=== PATIENT | male | born 1985 | race Two or more races ===

== ENCOUNTER 2017-07-10 11:53 | Emergency (ER) | payer SELFPAY ==
[~2017-07-10] VITALS: Ht 160 cm; Wt 70.3 kg
--- NOTE | 2017-07-10 11:56 | NUR ---
BIBRA FROM WORK PLACE DUE TO EPIGASTRIC PAIN, 04/28, SHARP/ PRESSURE LIKE, NON RADIATING. PATIENT IS [id number]. APPEARS IN NO APPARENT DISTRESS. RESPIRATION EVEN AND UNALBORED. SKIN IS WARM TO TOUCH AND NON DIAPHORETIC. AFEBRILE. VSS
[2017-07-10] MEDS ORDERED: ONDANSETRON HCL 4 MG/5 ML SOLUTION ONE (12:24)
[2017-07-10] MEDS ORDERED: MAG HYDROX/AL HYDROX/SIMETH 30 ML UDC ONE (12:24)
[2017-07-10] MEDS ORDERED: LIDOCAINE VISCOUS 2% UD 15 ML UDC ONE (12:24)
--- NOTE | 2017-07-10 12:27 | NUR ---
MEDICATED PT ORDERED
[2017-07-10] MEDS ORDERED: LIDOCAINE VISCOUS 2% UD 15 ML UDC MM ONE (12:30)
[2017-07-10] MEDS ORDERED: ONDANSETRON HCL/PF 4 MG/2 ML VIAL IV ONE (12:30)
[2017-07-10] MEDS ORDERED: MAG HYDROX/AL HYDROX/SIMETH 30 ML UDC PO ONE (12:30)
--- NOTE | 2017-07-10 13:57 | NUR ---
Patient discharged to home in stable condition. Written and verbal after care instructions given. Patient verbalizes understanding of instruction.IV removed. Catheter intact and site benign. Pressure and 4x4 applied to site. No bleeding noted.
[2017-07-10 13:58] VITALS: BP 121/66
== END 2017-07-10 13:59 | disposition home or self-care (01) ==
LOC: ER 11:55
DX: R10.13 Epigastric pain (principal); F17.200 Nicotine dependence, unspecified, uncomplicated
CPT/HCPCS: A4606; Q0162; Z7610